=== PATIENT | female | born 1975 | race Caucasian/White ===

== ENCOUNTER 2019-01-15 13:27 | Emergency (ER) | payer OTHER ==
[2019-01-15 13:38] VITALS: RESP 18
--- NOTE | 2019-01-15 14:30 | ED ---
Abdominal Pain HPI - General Chief Complaint: Abdominal Pain Stated Complaint: Abdominal pain Time Seen by Provider: 01/15/19 14:28 Source: patient Mode of arrival: ambulatory Limitations: no limitations - History of Present Illness Initial Comments: 43-year-old female presented for right lower abdominal pain. Patient states that for the past 2 days she has had right lower abdominal pain. She states it woke her up around 1:30 PM last night. She states it comes and goes decreasing increasing in intensity. She states is sharp. She states at times she goes from a lying to seated position she has pain in the right lower quadrant. Patient states there is some pain around the bellybutton. Patient states she has had diarrhea for the past 2 days. Denies fevers she states she was recently at [place] but did not drink from streams or reverse. Patient denies sick contacts. Patient is vaccinated. Denies recent antibiotic use or hospitalizati ons. Patient denies previous abdominal surgeries. Patient states that she usually has her periods regularly however this month it is late she has not had a period in December. Patient denies melena hematochezia or vomiting. Patient states she has not ate much in 2 days. Remaining review of systems negative upon arrival patient appears well signs of acute distress. States her pain is currently a 6 out of 10. - Related Data Home Medications Medication Instructions Recorded Confirmed Ibuprofen [Advil] 400 mg PO Q6H PRN 01/15/19 01/15/19 Previous Rx's Medication Instructions Recorded EPINEPHrine [Epipen 2-Christian] 0.3 mg IM ONCE PRN #2 injection 12/25/14 Allergies Allergy/AdvReac Type Severity Reaction Status Date / Time Penicillins Allergy Rash/Hives Verified 01/15/19 15:05 venom-honey bee Allergy Anaphylaxis Verified 01/15/19 15:05 [bee venom (honey bee)] Review of Systems ROS Statement: Those systems with pertinent positive or pertinent negative responses have been documented in the HPI. ROS Other: All systems not noted in ROS Statement are negative. Past Medical History Past Medical History: No Reported History History of Any Multi-Drug Resistant Organisms: None Reported Past Surgical History: No Surgical Hx Reported Past Psychological History: No Psychological Hx Reported Smoking Status: Current every day smoker Past Alcohol Use History: Occasional Past Drug Use History: None Reported General Exam - General Exam Comments Initial Comments: General: The patient is awake and alert, in no distress, and does not appear acutely ill. Eye: Pupils are equal, round and reactive to light, extra-ocular movements are intact. No nystagmus. There is normal conjunctiva bilaterally. No signs of icterus. Ears, nose, mouth and throat: There are moist mucous membranes and no oral lesions. Neck: The neck is supple, there is no tenderness or JVD. Cardiovascular: There is a regular rate and rhythm. No murmur, rub or gallop is appreciated. Respiratory: Lungs are clear to auscultation, respirations are non-labored, breath sounds are equal. No wheezes, stridor, rales, or rhonchi. Gastrointestinal: Soft, non-distended, abdomen tender to palpation of the RLQ no lower pelvic pain, the abdomen is without masses or organomegaly noted. There is no rebound or guarding present. No CVA tenderness. Bowel sounds are unremarkable.] Musculoskeletal: Normal ROM, no tenderness. Strength 5/5. Sensation intact. Pulses equal bilaterally 2+. Neurological: A&O x 3. CN II-XII intact, There are no obvious motor or sensory deficits. Coordination appears grossly intact. Speech is normal. Skin: Skin is warm and dry and no rashes or lesions are noted. Psychiatric: Cooperative, appropriate mood & affect, normal judgment. Limitations: no limitations Course Vital Signs 01/15/19 01/15/19 13:35 16:46 Temperature 98.5 F 97.8 F Pulse Rate 87 69 Respiratory 18 18 Rate Blood Pressure 142/92 129/73 O2 Sat by Pulse 100 99 Oximetry - Reevaluation(s) Reevaluation #1: Contacted Dr. Barber who reviewed CT again, he noted normal appendix on second view of imaing study. After discussing case together we feel the ileitis as the cause of the pain. 01/15/19 16:30 l Medical Decision Making - Medical Decision Making 43-year-old female presenting for right lower quadrant abdominal pain. CT initially was inconclusive for appendicitis which was patient's concern however there is evidence of ileitis that correlates clinically patient's pain. I contacted the radiologist who reread the image and states he actually was able to see the appendix and there is no abnormalities. No sensory or signs of appe ndicitis. Patient is afebrile and appears well. Patient has diarrhea. I recommend the patient follow up outpatient with her primary care provider if symptoms persist she may follow up with learning support aide just. Patient is agreeable to plan return parameters were discussed patient was discharged appearing well. I discussed the case in detail with Dr. Kelly who reviewed imaging studies and lab, recommends d/c agreeable with plan. - Lab Data Result diagrams: 01/15/19 14:23 01/15/19 14:23 Lab Results 01/15/19 01/15/19 01/15/19 Range/Units 14:23 14:23 14:53 WBC 12.1 H (3.8-10.6) k/uL RBC 5.57 H (3.80-5.40) m/uL Hgb 17.8 H (11.4-16.0) gm/dL Hct 54.2 H (34.0-46.0) % MCV 97.4 (80.0-100.0) fL MCH 32.0 (25.0-35.0) pg MCHC 32.9 (31.0-37.0) g/dL RDW 14.7 (11.5-15.5) % Plt Count 206 (150-450) k/uL Neutrophils % 83 % Lymphocytes % 11 % Monocytes % 3 % Eosinophils % 2 % Basophils % 0 % Neutrophils # 10.1 H (1.3-7.7) k/uL Lymphocytes # 1.3 (1.0-4.8) k/uL Monocytes # 0.4 (0-1.0) k/uL Eosinophils # 0.2 (0-0.7) k/uL Basophils # 0.0 (0-0.2) k/uL Sodium 139 (137-145) mmol/L Potassium 4.6 (3.5-5.1) mmol/L Chloride 103 (98-107) mmol/L Carbon Dioxide 26 (22-30) mmol/L Anion Gap 10 mmol/L BUN 11 (7-17) mg/dL Creatinine 0.69 (0.52-1.04) mg/dL Est GFR (CKD-EPI)AfAm >90 (>60 ml/min/1.73 sqM) Est GFR (CKD-EPI)NonAf >90 (>60 ml/min/1.73 sqM) Glucose 89 (74-99) mg/dL Calcium 10.0 (8.4-10.2) mg/dL Total Bilirubin 0.9 (0.2-1.3) mg/dL AST 30 (14-36) U/L ALT 23 (9-52) U/L Alkaline Phosphatase 84 (38-126) U/L Total Protein 7.8 (6.3-8.2) g/dL Albumin 4.7 (3.5-5.0) g/dL Urine Color Urine Appearance (Clear) Urine pH (5.0-8.0) Ur Specific [place] (1.001-1.035) Urine Protein (Negative) Urine Glucose (UA) (Negative) Urine Ketones (Negative) Urine Blood (Negative) Urine Nitrite (Negative) Urine Bilirubin (Negative) Urine Urobilinogen (<2.0) mg/dL Ur Leukocyte Esterase (Negative) Urine RBC (0-5) /hpf Urine WBC (0-5) /hpf Ur Squamous Epith Cells (0-4) /hpf Urine Bacteria (None) /hpf Urine Mucus (None) /hpf Urine HCG, Qual Not Detected (Not Detectd) 01/15/19 Range/Units 14:53 WBC (3.8-10.6) k/uL RBC (3.80-5.40) m/uL Hgb (11.4-16.0) gm/dL Hct (34.0-46.0) % MCV (80.0-100.0) fL MCH (25.0-35.0) pg MCHC (31.0-37.0) g/dL RDW (11.5-15.5) % Plt Count (150-450) k/uL Neutrophils % % Lymphocytes % % Monocytes % % Eosinophils % % Basophils % % Neutrophils # (1.3-7.7) k/uL Lymphocytes # (1.0-4.8) k/uL Monocytes # (0-1.0) k/uL Eosinophils # (0-0.7) k/uL Basophils # (0-0.2) k/uL Sodium (137-145) mmol/L Potassium (3.5-5.1) mmol/L Chloride (98-107) mmol/L Carbon Dioxide (22-30) mmol/L Anion Gap mmol/L BUN (7-17) mg/dL Creatinine (0.52-1.04) mg/dL Est GFR (CKD-EPI)AfAm (>60 ml/min/1.73 sqM) Est GFR (CKD-EPI)NonAf (>60 ml/min/1.73 sqM) Glucose (74-99) mg/dL Calcium (8.4-10.2) mg/dL Total Bilirubin (0.2-1.3) mg/dL AST (14-36) U/L ALT (9-52) U/L Alkaline Phosphatase (38-126) U/L Total Protein (6.3-8.2) g/dL Albumin (3.5-5.0) g/dL Urine Color Yellow Urine Appearance Cloudy H (Clear) Urine pH 5.5 (5.0-8.0) Ur Specific [place] 1.019 (1.001-1.035) Urine Protein Negative (Negative) Urine Glucose (UA) Negative (Negative) Urine Ketones 2+ H (Negative) Urine Blood Trace H (Negative) Urine Nitrite Negative (Negative) Urine Bilirubin Negative (Negative) Urine Urobilinogen <2.0 (<2.0) mg/dL Ur Leukocyte Esterase Negative (Negative) Urine RBC 2 (0-5) /hpf Urine WBC 6 H (0-5) /hpf Ur Squamous Epith Cells 6 H (0-4) /hpf Urine Bacteria Rare H (None) /hpf Urine Mucus Occasional H (None) /hpf Urine HCG, Qual (Not Detectd) Disposition Clinical Impression: Ileitis, Abdominal pain Disposition: HOME SELF-CARE Condition: Good Instructions (If sedation given, give patient instructions): Colitis (ED) Additional Instructions: Please use medication as discussed. Please follow-up with family doctor in the next 2 days, please review CT together. Please return to emergency room if the symptoms increase or worsen or for any other concerns. Is patient prescribed a controlled substance at d/c from ED?: No Referrals: Phan Lentz MD [STAFF PHYSICIAN] - 1-2 days Time of Disposition: 16:31
[2019-01-15 14:43] LABS: Basophils % (A) 0 %; Eosinophils # (A) 0.2 k/uL (0-0.7); Eosinophils % (A) 2 %; HCT 54.2 % (34.0-46.0); HGB 17.8 gm/dL (11.4-16.0); Lymphocytes # (A) 1.3 k/uL (1.0-4.8); Lymphocytes % (A) 11 %; MCHC 32.9 g/dL (31.0-37.0); MCV 97.4 fL (80.0-100.0); Mean Platelet Volume 7.7; Monocytes # (A) 0.4 k/uL (0-1.0); Monocytes % (A) 3 %; Neutrophils # (A) 10.1 k/uL (1.3-7.7); Neutrophils % (A) 83 %; Platelet Count 206 k/uL (150-450); RBC 5.57 m/uL (3.80-5.40); RDW 14.7 % (11.5-15.5); WBC 12.1 k/uL (3.8-10.6)
[2019-01-15 14:49] LABS: ALT 23 U/L (9-52); AST 30 U/L (14-36); African American GFR (CKD) >90 (>60 ml/min/1.73 sqM); Albumin 4.7 g/dL (3.5-5.0); Alkaline Phosphatase 84 U/L (38-126); Anion Gap 10 mmol/L; Blood Urea Nitrogen 11 mg/dL (7-17); Carbon Dioxide 26 mmol/L (22-30); Chloride 103 mmol/L (98-107); Glucose 89 mg/dL (74-99); Potassium 4.6 mmol/L (3.5-5.1); Sodium 139 mmol/L (137-145); Total Bilirubin 0.9 mg/dL (0.2-1.3); Total Protein 7.8 g/dL (6.3-8.2)
[2019-01-15 15:09] LABS: Appearance,Urine Cloudy (Clear); Bacteria,Urine Rare /hpf; Bilirubin,Urine Negative (Negative); Blood,Urine Trace (Negative); Color,Urine Yellow; Glucose,Urine (UA) Negative (Negative); Ketones,Urine 2+ (Negative); Leukocyte Esterase,Urine Negative (Negative); Mucus,Urine Occasional /hpf; Nitrite,Urine Negative (Negative); PH, Urine 5.5 (5.0-8.0); Protein,Urine Negative (Negative); RBC,Urine 2 /hpf (0-5); Specific Gravity,Urine 1.019 (1.001-1.035); Squamous Epithelial Cell,Urine 6 /hpf (0-4); Urobilinogen,Urine <2.0 mg/dL (<2.0); WBC,Urine 6 /hpf (0-5)
--- NOTE | 2019-01-15 15:54 | CT ---
EXAMINATION TYPE: CT abdomen pelvis w con DATE OF EXAM: 01/15/2019 COMPARISON: None INDICATION: Right sided abdominal pain. DLP: 660.2 mGycm, Automated exposure control for dose reduction was used. CONTRAST: 100 mL of Isovue 300. Study performed without Oral Contrast TECHNIQUE: Axial images were obtained from above the diaphragm to the pubic rami in the axial plane a t 5 mm thick sections. Reconstructed images are reviewed on the computer in the coronal plane. FINDINGS: Limited CT sections are obtained the lung bases. The lung bases are clear. CT ABDOMEN: Liver: Normal Spleen: Normal Pancreas: Normal Adrenal glands: The adrenal glands are normal. Gallbladder: Normal Kidneys: No masses are evident. No hydronephrosis is present. No cysts are present. Delayed images were obtained through the kidneys, which remain unremarkable. Aorta: Vascular calcification is within the aorta. Inferior vena cava: Normal. CT PELVIS: Small to moderate amount of free fluid is within the pelvis. Small bowel loops within the right lower quadrant has some thickened wall. Correlate for ileitis. Mil d Crohn's disease could be considered. The studies performed without oral contrast limiting bowel sterling luation. Appendix: Not identified. A dilated tubular structure is not evident. There is a small amount of flui d within the paracolic gutter. Clinical management of any suspected appendicitis will be required. Urinary bladder: Normal. Genitourinary structures: Uterus appears normal. Adnexal regions are clear. Osseous structures: No suspicious lytic or sclerotic lesions. IMPRESSIONS: 1. Thickened small bowel loops within the pelvis and terminal ileum. Correlate for ileitis. 2. Nonvisualization of the appendix. Correlate with surgical history. Clinical management of any susp ected appendicitis will be required. 3. Small to moderate free fluid within the pelvis.
[2019-01-15] MEDS ORDERED: ACET/COD 300 MG/30 MG STARTER PACK 6 TAB BTL PO STA (16:32)
[2019-01-15 16:47] VITALS: BP 129/73; PULSE 69; TEMP 97.8
== END 2019-01-15 16:47 | disposition home or self-care (01) ==
LOC: EC 13:27
DX: K52.9 Noninfective gastroenteritis and colitis, unspecified (principal); F17.200 Nicotine dependence, unspecified, uncomplicated; Z88.0 Allergy status to penicillin; Z91.030 Bee allergy status
CPT/HCPCS: 36415; 80053; 85025; 81001; 81025; 74177; 99284; Q9967